=== PATIENT | male | born 1940 | race Caucasian/White ===

== ENCOUNTER 2018-11-04 15:39 | Observation (INO) ==
[2018-11-04 17:21] LABS: Hematocrit 35.1 % (42.0-52.0); Hemoglobin 11.4 gm/dL (13.5-18.0); Mean Cell Volume 91.9 fl (78-100); Mean Corpuscular Hemoglobin 29.8 pg (27-31); Mean Corpuscular Hgb Conc 32.5 g/dl (32-36); Mean Platelet Volume 11.2 fl (8-11.3); Neutrophil # 7.8 K/mm3 (1.3-6.0); Neutrophil % 85.8 % (42-75.0); Platelet Count 144 K/mm3 (150-450); Red Blood Count 3.82 M/mm3 (4.7-6.0); Red Cell Distribution Width 15.9 % (11.5-14.0); White Blood Count 9.1 K/mm3 (4.0-10.5)
[2018-11-04 17:29] LABS: Prothrombin Time (Patient) 29.3 Seconds (9.1-10.7)
[2018-11-04 17:30] LABS: INR 3.09 INR (0.92-1.08)
[2018-11-04 17:39] LABS: Urine Bilirubin Negative (NEGATIVE); Urine Ketone Negative (NEGATIVE); Urine Nitrite Negative (NEGATIVE); Urine Protein 100 mg/dL (NEGATIVE); Urine Specific Gravity 1.025 SP.GR. (1.005-1.030); Urine Urobilinogen Normal (NORMAL)
[2018-11-04 17:43] LABS: ALT 60 U/L (19-67); AST 115 U/L (0-48); Albumin * 3.6 gm/dl (3.4-5.0); Alkaline Phosphatase * 176 U/L (50-170); Anion Gap 12.9 mmol/L (6.8-13.8); BUN/Creatinine Ratio 31.5 (9.0-21.6); Blood Urea Nitrogen 45 mg/dL (6-23); Ca. Corrected For Albumin 9.6 mg/dL (8.4-10.2); Calcium * 9.6 mg/dL (7.9-10.9); Carbon Dioxide 28.1 mmol/L (24-32.6); Chloride 95 mmol/L (97-106); Digoxin 1.1 ng/mL (0.5-2.0); Glucose * 123 mg/dL (70-110); Sodium 131 mmol/L (132-142); TSH * 1.628 uIU/mL (0.358-3.74); Total Protein 7.1 gm/dL (6.2-8.2)
[2018-11-04 17:44] LABS: Salicylate Less than 2.8 mg/dL (2.8-20.0)
[2018-11-04 17:49] LABS: Urine Appearance Clear (CLEAR); Urine Blood 5 /ul (NEGATIVE); Urine Color Yellow
[2018-11-04 17:50] LABS: Urine Bacteria 1+; Urine Hyaline Cast 0-5 /LPF; Urine Mucus Few - 1+; Urine RBC 0-5 /hpf (0-5); Urine WBC 0-5 /hpf (0-5)
[2018-11-04 17:50] LABS: Cocaine Ur Negative (NEGATIVE); Urine Barbiturate Negative (NEGATIVE); Urine Benzodiazepines Negative (NEGATIVE); Urine Opiates Positive (NEGATIVE); Urine PCP Negative (NEGATIVE); Urine THC Negative (NEGATIVE)
--- NOTE | 2018-11-04 19:26 | ERNOTE ---
Neuro HPI ER Record Date of Service: 11/04/18 Presenting Symptoms: confusion, other - hallucinations Time Seen by Provider: 11/04/18 16:54 Source: patient, family Exam Limitations: no limitations Immunizations: IMMUNIZATION HX Immunizations Up to Date Yes Allergies/Adverse Reactions: Allergies Allergy/AdvReac Type Severity Reaction Status Date / Time JAMISON Inhibitors Allergy Severe Verified 11/04/18 16:14 Home Medications: HOME MEDICATIONS albuterol sulfate 1.25 mg/3 mL solution for nebulization 1.25 mg IH QID PRN #90 ml 04/01/18 [Last Taken Unknown] cholecalciferol (vitamin D3) 10,000 unit capsule 10,000 unit PO DAILY #30 cap 04/01/18 [Last Taken Unknown] digoxin 125 mcg tablet 0.125 mg PO DAILY #30 tab 04/01/18 [Last Taken Unknown] gabapentin 300 mg capsule 300 mg PO TID #90 cap 04/01/18 [Last Taken Unknown] isosorbide mononitrate ER 30 mg tablet,extended release 24 hr 15 mg PO DAILY #30 tab 04/01/18 [Last Taken Unknown] lorazepam 0.5 mg tablet 0.5 mg PO DAILY PRN #30 tab 04/01/18 [Last Taken Unknown] magnesium oxide 500 mg capsule 500 mg PO BID #60 cap 04/01/18 [Last Taken Unknown] nitroglycerin 0.4 mg sublingual tablet 0.4 mg SL Q5-15M PRN #30 tab 04/01/18 [Last Taken Unknown] simvastatin 20 mg tablet 20 mg PO QPM #30 tab 04/01/18 [Last Taken Unknown] tamsulosin 0.4 mg capsule 0.4 mg PO DAILY #30 cap 04/01/18 [Last Taken Unknown] warfarin 5 mg tablet 5 mg PO DAILY #30 tab 04/01/18 [Last Taken Unknown] furosemide 20 mg tablet 20 mg PO DAILY #30 tab 05/06/18 [Last Taken Unknown] potassium chloride ER 20 mEq tablet,extended release 20 meq PO DAILY #90 tab 05/06/18 [Last Taken Unknown] doxycycline hyclate 100 mg capsule 100 mg PO BID #14 cap 07/21/18 [Last Taken Unknown] prednisone 10 mg tablet 10 mg PO .COMPLEX #30 tab 07/21/18 [Last Taken Unknown] memantine 10 mg tablet 10 mg PO BID #60 tab 09/04/18 [Last Taken Unknown] fluoxetine 40 mg capsule 40 mg PO DAILY #30 cap 10/16/18 [Last Taken Unknown] allopurinol 300 mg tablet See Rx Instructions .ROUTE .COMPLEX #30 tablet 10/27/18 [Last Taken Unknown] eplerenone 25 mg tablet See Rx Instructions .ROUTE .COMPLEX #30 tablet 10/27/18 [Last Taken Unknown] nortriptyline 50 mg capsule See Rx Instructions .ROUTE .COMPLEX #30 capsule 10/27/18 [Last Taken Unknown] hydrocodone 5 mg-acetaminophen 325 mg tablet 1 tab PO Q6H PRN #120 tab 10/28/18 [Last Taken Unknown] - History of Present Illness Narrative: Patient presents to the ED for increased hallucinations and confusion. He has been having increased falls and family has been looking to get him placed in a intermediate. His relates that he has been having increased confusion and hallucinations. Talking to people who aren't there and seeing firetrucks that aren't there. He does not think this is happening. This has especially noted since Friday. He was to get a CT with contrast today but that could not be done because his creatinine was too high. No chest pain. no acute N/T/w. Onset: >3 hours - Character of Deficits New weakness: Present: other - nonr Altered sensation: Present: other - none Additional Deficits: Present: falling Baseline Gait: Present: walks w/o assistance Associated Symptoms: Reports: trouble thinking. Denies: fever/chills, chest pain, decreased responsiveness Prior Treament: Reports: recently seen. Denies: recently hospitalized Review of Systems - Review of Systems Constitutional: Absent: fever EYE: Absent: double vision ENT: Absent: sore throat Respiratory: Present: shortness of breath, other - chronic SOB Cardiology: Absent: chest pain Gastrointestinal/Abdominal: Absent: abdominal pain Genitourinary: Absent: dysuria Musculoskeletal: Present: other - no extremity injury from the falls Skin: Absent: rash Neurological: Absent: seizure All Other Systems: All systems neg except as marked Medical History (Last Reviewed 11/04/18 @ 19:17 by Enmanuel Shah MD) Movement disorder (Chronic) Atrial fibrillation (Chronic) Alzheimer's dementia (Chronic) CHF (congestive heart failure) (Chronic) Balance problem (Chronic) COPD (chronic obstructive pulmonary disease) (Chronic) Seizures (Chronic) PTSD (post-traumatic stress disorder) (Chronic) Skin cancer (Chronic) Brainstem stroke (Chronic) Heart murmur, systolic (Chronic) Anxiety Onset Date: Unknown Arthritis Onset Date: Unknown CHF (congestive heart failure) Onset Date: Unknown COPD (chronic obstructive pulmonary disease) Onset Date: Unknown Coronary artery disease Onset Date: Unknown Hypertension Onset Date: Unknown Irregular heartbeat Onset Date: Unknown MVP (mitral valve prolapse) Onset Date: Unknown Seizure disorder Onset Date: Unknown Sleep apnea Onset Date: Unknown Surgical History: Surgical History (Last Reviewed 11/04/18 @ 19:17 by Enmanuel Shah MD) Hx of appendectomy Onset Date: Unknown Hx of total knee replacement Onset Date: Unknown Bilateral Family History: Family History (Last Reviewed 11/04/18 @ 19:17 by Enmanuel Shah MD) Other No pertinent family history Social History: Preferred Language Israeli Do you have any amish or No cultural preference? Smoking Status Former smoker (Last Updated 11/03/18 @ 19:45 by Macho Mercado DO) No Social History Section defined Physical Exam - Physical Exam General Appearance: Present: alert, no apparent distress Head Exam: Present: normal inspection, no evidence of injury Eye Exam: Normal inspection: bilateral, PERRL: bilateral Ears, Nose, Throat: Present: normal ENT inspection Neck: Present: normal inspection Respiratory: Present: no respiratory distress, normal breath sounds, no accessory muscle use, lungs clear Cardiovascular/Chest: Present: normal peripheral pulses, irregularly irregular Gastrointestinal/Abdominal: Present: normal bowel sounds, nontender, nondistended, soft Back Exam: Absent: CVA tenderness (R), CVA tenderness (L) Extremity Exam: Present: normal range of motion Neurological Exam: Present: alert, no motor/sensory deficits, other - No evidence of acute stroke. He knows Ana is the president, its 2019 and that we are coming into . Skin Exam: Present: normal color, warm/dry Progress - Results and Orders Patient's Lab Results:: I have reviewed the patient's lab results. - Vital Signs Patient's Vital Signs:: I have reviewed the patient's vital signs. Vital Signs: Vital Signs 11/04/18 16:11 11/04/18 16:20 11/04/18 18:00 Temperature 36.4 C Pulse Rate 82 70 83 Respiratory Rate 15 Blood Pressure 143/88 O2 Sat by Pulse Oximetry 96 92 L 94 11/04/18 18:15 11/04/18 18:16 11/04/18 18:55 Temperature Pulse Rate 83 66 68 Respiratory Rate 18 18 Blood Pressure 140/86 131/84 O2 Sat by Pulse Oximetry 94 93 93 - EKG EKG #1 EKG: atrial fibrillation EKG read: Interp. by me EKG Comments: A fib rate 69. RBBB. Non-specific ST/T wave changes, no clear evidence of STEMI - CT/Ultrasound CT/Ultrasound Narrative: I reviewed head CT report per radiology, also recent CXR report - Progress/Reassessment Chief Complaint: Altered Mental Status Progress Note-Subjective: 11/04/18 19:20 Patient has elevated troponin of uncertain significance. He will need r/o, trending. I spoke with Dr Amin who saw the patient in the ED and admitted the patient. Pt and family agreeable. Departure Clinical Impression: Elevated troponin, Hallucinations, Altered mental status, Elevated serum creatinine - Departure Disposition: Still a patient Condition: Stable Referrals: Macho Mercado DO [Primary Care Provider] -
--- NOTE | 2018-11-04 20:22 | HP ---
Chief Complaint - Chief Complaint Date of Service: 11/04/18 Time of Service: 18:45 Chief Complaint: Altered mental status and recurrent falls History of Present Illness: 78-year-old male with past medical history of Alzheimer's dementia, anxiety, atrial fibrillation, CHF, COPD, CAD, hypertension, PTSD, seizure disorder, sleep apnea presents with complaints of altered mental status and recurrent falls. He is accompanied by his . She states that his symptoms began approximately 4 days ago where he was having visual hallucinations. He was seeing things such as a fire truck outside when there was no cars outside. He has also been having recurrent falls, approximately 3x/day. He had seen his primary care physician yesterday and was supposed to get a CT head today which she was not able to get due to abnormal renal function. In the ED CT head with no contrast showed no acute abnormality. states that his primary care physician, had discontinued all his medications except the warfarin and digoxin to see if this was contributing to his symptoms. Medical History (Last Reviewed 11/04/18 @ 19:17 by Enmanuel Shah MD) Movement disorder (Chronic) Atrial fibrillation (Chronic) Alzheimer's dementia (Chronic) CHF (congestive heart failure) (Chronic) Balance problem (Chronic) COPD (chronic obstructive pulmonary disease) (Chronic) Seizures (Chronic) PTSD (post-traumatic stress disorder) (Chronic) Skin cancer (Chronic) Brainstem stroke (Chronic) Heart murmur, systolic (Chronic) Anxiety Onset Date: Unknown Arthritis Onset Date: Unknown CHF (congestive heart failure) Onset Date: Unknown COPD (chronic obstructive pulmonary disease) Onset Date: Unknown Coronary artery disease Onset Date: Unknown Hypertension Onset Date: Unknown Irregular heartbeat Onset Date: Unknown MVP (mitral valve prolapse) Onset Date: Unknown Seizure disorder Onset Date: Unknown Sleep apnea Onset Date: Unknown Surgical History: Surgical History (Last Reviewed 11/04/18 @ 19:17 by Enmanuel Shah MD) Hx of appendectomy Onset Date: Unknown Hx of total knee replacement Onset Date: Unknown Bilateral Family History: Family History (Last Reviewed 11/04/18 @ 19:17 by Enmanuel Shah MD) Other No pertinent family history Social History: Preferred Language Sudanese Do you have any rastafari or No cultural preference? Smoking Status Former smoker (Last Updated 11/03/18 @ 19:45 by Macho Mercado DO) No Social History Section defined Review Of Systems (GEN) - Review of Systems Generalized/Overall Review: Absent: Fever Cardiac: Absent: Chest Pain Abdominal: Absent: Abdominal Pain Misc: All systems neg except as marked Immunizations: IMMUNIZATION HX Immunizations Up to Date Yes Allergies/Adverse Reactions: Allergies Allergy/AdvReac Type Severity Reaction Status Date / Time JAMISON Inhibitors Allergy Severe Verified 11/04/18 16:14 Home Medications: HOME MEDICATIONS albuterol sulfate 1.25 mg/3 mL solution for nebulization 1.25 mg IH QID PRN #90 ml 04/01/18 [Last Taken Unknown] cholecalciferol (vitamin D3) 10,000 unit capsule 10,000 unit PO DAILY #30 cap 04/01/18 [Last Taken Unknown] digoxin 125 mcg tablet 0.125 mg PO DAILY #30 tab 04/01/18 [Last Taken Unknown] gabapentin 300 mg capsule 300 mg PO TID #90 cap 04/01/18 [Last Taken Unknown] isosorbide mononitrate ER 30 mg tablet,extended release 24 hr 15 mg PO DAILY #30 tab 04/01/18 [Last Taken Unknown] lorazepam 0.5 mg tablet 0.5 mg PO DAILY PRN #30 tab 04/01/18 [Last Taken Unknown] magnesium oxide 500 mg capsule 500 mg PO BID #60 cap 04/01/18 [Last Taken Unknown] nitroglycerin 0.4 mg sublingual tablet 0.4 mg SL Q5-15M PRN #30 tab 04/01/18 [Last Taken Unknown] simvastatin 20 mg tablet 20 mg PO QPM #30 tab 04/01/18 [Last Taken Unknown] tamsulosin 0.4 mg capsule 0.4 mg PO DAILY #30 cap 04/01/18 [Last Taken Unknown] warfarin 5 mg tablet 5 mg PO DAILY #30 tab 04/01/18 [Last Taken Unknown] furosemide 20 mg tablet 20 mg PO DAILY #30 tab 05/06/18 [Last Taken Unknown] potassium chloride ER 20 mEq tablet,extended release 20 meq PO DAILY #90 tab 05/06/18 [Last Taken Unknown] doxycycline hyclate 100 mg capsule 100 mg PO BID #14 cap 07/21/18 [Last Taken Unknown] prednisone 10 mg tablet 10 mg PO .COMPLEX #30 tab 07/21/18 [Last Taken Unknown] memantine 10 mg tablet 10 mg PO BID #60 tab 09/04/18 [Last Taken Unknown] fluoxetine 40 mg capsule 40 mg PO DAILY #30 cap 10/16/18 [Last Taken Unknown] allopurinol 300 mg tablet See Rx Instructions .ROUTE .COMPLEX #30 tablet 10/27/18 [Last Taken Unknown] eplerenone 25 mg tablet See Rx Instructions .ROUTE .COMPLEX #30 tablet 10/27/18 [Last Taken Unknown] nortriptyline 50 mg capsule See Rx Instructions .ROUTE .COMPLEX #30 capsule 10/27/18 [Last Taken Unknown] hydrocodone 5 mg-acetaminophen 325 mg tablet 1 tab PO Q6H PRN #120 tab 10/28/18 [Last Taken Unknown] Exam - Exam Vital Signs: Vital Signs - Last Taken Temp 36.4 C 11/04/18 16:11 Pulse 68 11/04/18 20:01 Resp 20 11/04/18 20:01 BP 131/76 11/04/18 20:01 Pulse Ox 93 11/04/18 20:01 Constitutional: Present: Alert, Oriented x3, Cooperative, Well developed, Well nourished, No distress, Elderly, Looks Older than stated age ENT Exam: Present: hearing grossly normal Eye Exam: bilateral eye: normal inspection, PERRL Neck: Present: non-tender, supple. Absent: lymphadenopathy (R), lymphadenopathy (L) Back Exam: Present: normal inspection Respiratory: Present: lungs clear, normal breath sounds, No wheezing. Absent: crackles, rhonchi Cardiovascular/Chest: Present: normal peripheral pulses, regular rate, rhythm, no murmur Peripheral Pulses: dorsalis-pedis (R): 1+, dorsalis-pedis (L): 1+ Abdomen: Present: Normal bowel sounds, soft, nontender Extremity: Present: non-tender, pedal edema - Trace Skin Exam: Present: normal color, warm/dry Appearance: Present: appropriate appearance, impaired insight Eye contact: Present: cooperative, good eye contact Thoughts: Present: normal mood /affect Diagnostic Studies: Abnormal Lab Results 11/04/18 11/04/18 11/04/18 Range/Units 17:14 17:14 17:14 RBC 3.82 L (4.7-6.0) M/mm3 Hgb 11.4 L (13.5-18.0) gm/dL Hct 35.1 L (42.0-52.0) % RDW 15.9 H (11.5-14.0) % Plt Count 144 L (150-450) K/mm3 Neutrophils % 85.8 H (42-75.0) % Lymphocytes % 6.4 L (20-51) % Neutrophils # 7.8 H (1.3-6.0) K/mm3 Lymphocytes # 0.58 L (1.5-3.5) k/mm3 PT 29.3 H (9.1-10.7) Seconds INR (Anticoag Therapy) 3.09 H (0.92-1.08) INR Sodium 131 L (132-142) mmol/L Potassium 5.0 H (3.4-4.6) mmol/L Chloride 95 L (97-106) mmol/L BUN 45 H (6-23) mg/dL Creatinine 1.43 H (0.4-1.4) mg/dL Est GFR (Non-Af Amer) 51 L (60-130) mL/min BUN/Creatinine Ratio 31.5 H (9.0-21.6) Random Glucose 123 H (70-110) mg/dL AST 115 H (0-48) U/L Alkaline Phosphatase 176 H (50-170) U/L Troponin I 0.120 H* (0.00-0.10) ng/mL Urine Protein (NEGATIVE) mg/dL Urine Blood (NEGATIVE) /ul Prot Sulfosalicylic Acd (0) mg/dL Urine Bacteria (NONE) Hyaline Casts (NONE) /LPF Urine Mucus (NONE) Salicylates Less than 2.8 L (2.8-20.0) mg/dL Urine Opiates Screen (NEGATIVE) Acetaminophen Less than 0.2 L (10.0-30.0) mcg/mL 11/04/18 11/04/18 Range/Units 17:24 17:26 RBC (4.7-6.0) M/mm3 Hgb (13.5-18.0) gm/dL Hct (42.0-52.0) % RDW (11.5-14.0) % Plt Count (150-450) K/mm3 Neutrophils % (42-75.0) % Lymphocytes % (20-51) % Neutrophils # (1.3-6.0) K/mm3 Lymphocytes # (1.5-3.5) k/mm3 PT (9.1-10.7) Seconds INR (Anticoag Therapy) (0.92-1.08) INR Sodium (132-142) mmol/L Potassium (3.4-4.6) mmol/L Chloride (97-106) mmol/L BUN (6-23) mg/dL Creatinine (0.4-1.4) mg/dL Est GFR (Non-Af Amer) (60-130) mL/min BUN/Creatinine Ratio (9.0-21.6) Random Glucose (70-110) mg/dL AST (0-48) U/L Alkaline Phosphatase (50-170) U/L Troponin I (0.00-0.10) ng/mL Urine Protein 100 H (NEGATIVE) mg/dL Urine Blood 5 H (NEGATIVE) /ul Prot Sulfosalicylic Acd 2+ H (0) mg/dL Urine Bacteria 1+ H (NONE) Hyaline Casts 0-5 H (NONE) /LPF Urine Mucus Few - 1+ H (NONE) Salicylates (2.8-20.0) mg/dL Urine Opiates Screen Positive H (NEGATIVE) Acetaminophen (10.0-30.0) mcg/mL Laboratory Results WBC 9.1 K/mm3 (4.0-10.5) 11/04/18 17:14 RBC 3.82 M/mm3 (4.7-6.0) L 11/04/18 17:14 Hgb 11.4 gm/dL (13.5-18.0) L 11/04/18 17:14 Hct 35.1 % (42.0-52.0) L 11/04/18 17:14 MCV 91.9 fl (78-100) 11/04/18 17:14 MCH 29.8 pg (27-31) 11/04/18 17:14 MCHC 32.5 g/dl (32-36) 11/04/18 17:14 RDW 15.9 % (11.5-14.0) H 11/04/18 17:14 Plt Count 144 K/mm3 (150-450) L 11/04/18 17:14 MPV 11.2 fl (8-11.3) 11/04/18 17:14 Immature Gran % (Auto) 0.30 % (0.001-0.429) 11/04/18 17:14 Immature Gran # (Auto) 0.03 K/mm3 (0.000-0.0310) 11/04/18 17:14 Neutrophils % 85.8 % (42-75.0) H 11/04/18 17:14 Lymphocytes % 6.4 % (20-51) L 11/04/18 17:14 Monocytes % 7.0 % (0.0-9) 11/04/18 17:14 Eosinophils % 0.3 % (0.0-3.0) 11/04/18 17:14 Basophils % 0.2 % (0.0-1.0) 11/04/18 17:14 Nucleated RBC % 0.0 k/mm3 (0-1) 11/04/18 17:14 Neutrophils # 7.8 K/mm3 (1.3-6.0) H 11/04/18 17:14 Lymphocytes # 0.58 k/mm3 (1.5-3.5) L 11/04/18 17:14 Monocytes # 0.6 k/mm3 (0.0-1.0) 11/04/18 17:14 Eosinophils # 0.0 k/mm3 (0.0-0.7) 11/04/18 17:14 Absolute Basophils 0.0 k/mm3 (0.0-0.1) 11/04/18 17:14 PT 29.3 Seconds (9.1-10.7) H 11/04/18 17:14 INR (Anticoag Therapy) 3.09 INR (0.92-1.08) H 11/04/18 17:14 Sodium 131 mmol/L (132-142) L 11/04/18 17:14 Plasma Sodium 131 mmol/L (130-142) 11/04/18 17:14 Potassium 5.0 mmol/L (3.4-4.6) H 11/04/18 17:14 Chloride 95 mmol/L (97-106) L 11/04/18 17:14 Carbon Dioxide 28.1 mmol/L (24-32.6) 11/04/18 17:14 Anion Gap 12.9 mmol/L (6.8-13.8) 11/04/18 17:14 BUN 45 mg/dL (6-23) H 11/04/18 17:14 Creatinine 1.43 mg/dL (0.4-1.4) H 11/04/18 17:14 Est GFR (Non-Af Amer) 51 mL/min (60-130) L 11/04/18 17:14 BUN/Creatinine Ratio 31.5 (9.0-21.6) H 11/04/18 17:14 Random Glucose 123 mg/dL (70-110) H 11/04/18 17:14 Calcium 9.6 mg/dL (7.9-10.9) 11/04/18 17:14 Calcium Adj for Albumin 9.6 mg/dL (8.4-10.2) 11/04/18 17:14 Total Bilirubin 1.0 mg/dL (0.0-1.1) 11/04/18 17:14 AST 115 U/L (0-48) H 11/04/18 17:14 ALT 60 U/L (19-67) 11/04/18 17:14 Alkaline Phosphatase 176 U/L (50-170) H 11/04/18 17:14 Ammonia 19.0 mcmol/L (11-35) 11/04/18 17:14 Troponin I 0.120 ng/mL (0.00-0.10) H* 11/04/18 17:14 Total Protein 7.1 gm/dL (6.2-8.2) 11/04/18 17:14 Albumin 3.6 gm/dl (3.4-5.0) 11/04/18 17:14 TSH 1.628 uIU/mL (0.358-3.74) 11/04/18 17:14 Urine Color Yellow 11/04/18 17:24 Urine Appearance Clear (CLEAR) 11/04/18 17:24 Urine pH 6.0 pH (5.0-7.0) 11/04/18 17:24 Ur Specific [place] 1.025 SP.GR. (1.005-1.030) 11/04/18 17:24 Urine Protein 100 mg/dL (NEGATIVE) H 11/04/18 17:24 Urine Glucose (UA) Negative mg/dL (NEGATIVE) 11/04/18 17:24 Urine Ketones Negative mg/dL (NEGATIVE) 11/04/18 17:24 Urine Blood 5 /ul (NEGATIVE) H 11/04/18 17:24 Urine Nitrate Negative (NEGATIVE) 11/04/18 17:24 Urine Bilirubin Negative mg/dl (NEGATIVE) 11/04/18 17:24 Prot Sulfosalicylic Acd 2+ mg/dL (0) H 11/04/18 17:24 Urine Urobilinogen Normal EU/dl (NORMAL) 11/04/18 17:24 Ur Leukocyte Esterase Negative /ul (NEGATIVE) 11/04/18 17:24 Urine RBC 0-5 /hpf (0-5) 11/04/18 17:24 Urine WBC 0-5 /hpf (0-5) 11/04/18 17:24 Ur Epithelial Cells 0-5 /hpf (0-5) 11/04/18 17:24 Urine Bacteria 1+ (NONE) H 11/04/18 17:24 Hyaline Casts 0-5 /LPF (NONE) H 11/04/18 17:24 Urine Mucus Few - 1+ (NONE) H 11/04/18 17:24 Urine Culture Comments No culture indicated 11/04/18 17:24 Digoxin 1.1 ng/mL (0.5-2.0) 11/04/18 17:14 Salicylates Less than 2.8 mg/dL (2.8-20.0) L 11/04/18 17:14 Urine Opiates Screen Positive (NEGATIVE) H 11/04/18 17:26 Acetaminophen Less than 0.2 mcg/mL (10.0-30.0) L 11/04/18 17:14 Barbiturate Screen Negative (NEGATIVE) 11/04/18 17:26 Ur Phencyclidine Scrn Negative (NEGATIVE) 11/04/18 17:26 Urine Amphetamine Negative (NEGATIVE) 11/04/18 17:26 U Benzodiazepines Scrn Negative (NEGATIVE) 11/04/18 17:26 Urine Cocaine Screen Negative (NEGATIVE) 11/04/18 17:26 Urine Marijuana (THC) Negative (NEGATIVE) 11/04/18 17:26 Ethyl Alcohol 3.0 mg/dL (0.0-10.0) 11/04/18 17:14 Assessment/Plan - Narrative Narrative: 78-year-old male with past medical history of Alzheimer's dementia, anxiety, atrial fibrillation, CHF, COPD, CAD, hypertension, PTSD, seizure disorder, sleep apnea presents with complaints of visual hallucinations and recurrent falls. would like to place him in a fci because she believes he is not safe at home. She works 2 jobs and has nobody to check in on him. - Assessment/Plan (1) Hallucinations Assessment: Likely secondary to delirium in the setting of dementia. We will consider psych consult tomorrow Problem: Acute (2) Altered mental status Assessment: Likely secondary to delirium in the setting of dementia. Consider psych consult in the morning. No signs of infectious etiology. Problem: Acute (3) Atrial fibrillation Problem: Chronic Qualifiers: Atrial fibrillation type: chronic Qualified Code(s): I48.2 - Chronic atrial fibrillation (4) CHF (congestive heart failure) Problem: Chronic Qualifiers: Heart failure type: right-sided Heart failure chronicity: chronic Qualified Code(s): I50.812 - Chronic right heart failure (5) COPD (chronic obstructive pulmonary disease) Problem: Chronic Qualifiers: COPD type: emphysema Emphysema type: panlobular Qualified Code(s): J43.1 - Panlobular emphysema (6) Elevated troponin Assessment: Etiology unclear will trend. He denies chest pain. Possibly secondary to CKD. Problem: Acute
[2018-11-04] MEDS ORDERED: ALBUTEROL SULFATE 2.5 MG/0.5 ML VIAL.NEB IH PRN (20:52)
[2018-11-04] MEDS: ALBUTEROL SULFATE 2.5 MG/0.5 ML VIAL.NEB IH PRN (21:17)
[2018-11-04] MEDS ORDERED: ALBUTEROL SULFATE 2.5 MG/0.5 ML VIAL.NEB IH ONE (23:33)
[2018-11-05] MEDS: ALBUTEROL SULFATE 2.5 MG/0.5 ML VIAL.NEB IH PRN ×2 (03:30→17:25)
[2018-11-05 08:28] LABS: Prothrombin Time (Patient) 29.4 Seconds (9.1-10.7)
[2018-11-05 08:43] LABS: INR 3.1 INR (0.92-1.08)
[2018-11-05] MEDS: DIGOXIN 0.125 MG TABLET PO SCH (08:57)
[2018-11-05] MEDS ORDERED: LORazepam 0.5 MG TABLET PO PRN (15:56)
--- NOTE | 2018-11-05 15:56 | CONS ---
[facility] - General Date of Service: 11/05/18 Source: patient, family, RN/MD, RN notes reviewed, old records Exam Limitations: clinical condition - History of Present Illness Timing/Duration: getting worse Severity: moderate Allergies/Adverse Reactions: Allergies JAMISON Inhibitors Allergy (Severe, Verified 11/04/18 20:33) Home Medications: Home Medications Medication Instructions Recorded Last Taken albuterol sulfate 1.25 mg/3 mL 1.25 mg IH QID PRN #90 ml 04/01/18 Unknown solution for nebulization cholecalciferol (vitamin D3) 10,000 unit PO DAILY #30 cap 04/01/18 Unknown 10,000 unit capsule digoxin 125 mcg tablet 0.125 mg PO DAILY #30 tab 04/01/18 Unknown gabapentin 300 mg capsule 300 mg PO TID #90 cap 04/01/18 Unknown isosorbide mononitrate ER 30 mg 15 mg PO DAILY #30 tab 04/01/18 Unknown tablet,extended release 24 hr lorazepam 0.5 mg tablet 0.5 mg PO DAILY PRN #30 tab 04/01/18 Unknown magnesium oxide 500 mg capsule 500 mg PO BID #60 cap 04/01/18 Unknown nitroglycerin 0.4 mg sublingual 0.4 mg SL Q5-15M PRN #30 tab 04/01/18 Unknown tablet simvastatin 20 mg tablet 20 mg PO QPM #30 tab 04/01/18 Unknown tamsulosin 0.4 mg capsule 0.4 mg PO DAILY #30 cap 04/01/18 Unknown warfarin 5 mg tablet 5 mg PO DAILY #30 tab 04/01/18 Unknown furosemide 20 mg tablet 20 mg PO DAILY #30 tab 05/06/18 Unknown potassium chloride ER 20 mEq 20 meq PO DAILY #90 tab 05/06/18 Unknown tablet,extended release doxycycline hyclate 100 mg capsule 100 mg PO BID #14 cap 07/21/18 Unknown prednisone 10 mg tablet 10 mg PO .COMPLEX #30 tab 07/21/18 Unknown memantine 10 mg tablet 10 mg PO BID #60 tab 09/04/18 Unknown fluoxetine 40 mg capsule 40 mg PO DAILY #30 cap 10/16/18 Unknown allopurinol 300 mg tablet See Rx Instructions .ROUTE 10/27/18 Unknown .COMPLEX #30 tablet eplerenone 25 mg tablet See Rx Instructions .ROUTE 10/27/18 Unknown .COMPLEX #30 tablet nortriptyline 50 mg capsule See Rx Instructions .ROUTE 10/27/18 Unknown .COMPLEX #30 capsule hydrocodone 5 mg-acetaminophen 325 1 tab PO Q6H PRN #120 tab 10/28/18 Unknown mg tablet Medications - Medications Current Medications: Current Medications Albuterol Sulfate (Albuterol Sulfate 2.5 Mg/0.5ml) 2.5 mg IH Q6H PRN PRN Reason: Wheezing Stop: 12/04/18 21:01 Last Admin: 11/05/18 03:30 Dose: 2.5 mg Documented by: Digoxin (Lanoxin) 0.125 mg PO DAILY CHUCKY Stop: 12/05/18 09:01 Last Admin: 11/05/18 08:57 Dose: 0.125 mg Documented by: Review of Systems - Review of Systems Neurological: Present: Anxiety, Pre-existing Deficit Physical Examination - Exam Narrative: Visit lasts approx. 20 minutes. Patient seen with . states that several weeks ago, condition began to deteriorate. Has been falling frequently and experiencing auditory and visual hallucinations like thinking people are in the house or there is a firetruck at the neighbor's. states that they were managing at home fine until the past 1-2 weeks. She can't leave him alone due to the mild confusion and falls. states that PCP stopped all of medications except for Coumadin and Digoxin on Friday. Stopping these medications has not improved or worsened mental status. states that she suspects a UTI due to rapid change in his mental status. He has not been drinking much and has been voiding more frequently the past 2 days. Patient states that he has only one kidney. Discussed possible causes of change in mental status. I feels since the decline occurred fairly quickly, that the hallucinations and confusion are due to a medical condition. I recommend that labs be reviewed by attending provider and repeat UA. I feel that he would benefit from Lorazepam 0.5 mg BID PRN for anxiety. I do not recommend restarting Nortriptyline due to anticolinergic effects and increased risk for hypotension, dizziness, and falls due to side effects. Vital Signs: Vital Signs - Last Taken Temp 12 C L 11/05/18 13:28 Pulse 86 11/05/18 13:28 Resp 16 11/05/18 13:28 BP 116/72 11/05/18 13:28 Pulse Ox 93 11/05/18 13:28 O2 Oxygen Delivery Method Room Air Constitutional: Present: Alert, Cooperative, Mild distress - Legs are restless, kicking feet around under covers. Appearance: Present: impaired insight, impaired recent memory, other - Able to recall some recent events. Is able to recall past events.. Absent: appropriate insight, no memory impairment, impaired remote memory Eye contact: Present: cooperative, good eye contact Thoughts: Present: auditory hallucinations, visual hallucinations, other - Denies any hallucinations at the present time but has had them intermittently. - Results and Findings: Lab/Microbiology results last 24 hrs: Abnormal/Pending Laboratory Last 24 HRS 11/05/18 11/04/18 11/04/18 06:10 17:26 17:24 RBC Hgb Hct RDW Plt Count Neutrophils % Lymphocytes % Neutrophils # Lymphocytes # PT 29.4 H INR (Anticoag Therapy) 3.10 H Sodium Potassium Chloride BUN Creatinine Est GFR (Non-Af Amer) BUN/Creatinine Ratio Random Glucose AST Alkaline Phosphatase Troponin I Urine Protein 100 H Urine Blood 5 H Prot Sulfosalicylic Acd 2+ H Urine Bacteria 1+ H Hyaline Casts 0-5 H Urine Mucus Few - 1+ H Salicylates Urine Opiates Screen Positive H Acetaminophen 11/04/18 11/04/18 11/04/18 17:14 17:14 17:14 RBC 3.82 L Hgb 11.4 L Hct 35.1 L RDW 15.9 H Plt Count 144 L Neutrophils % 85.8 H Lymphocytes % 6.4 L Neutrophils # 7.8 H Lymphocytes # 0.58 L PT 29.3 H INR (Anticoag Therapy) 3.09 H Sodium 131 L Potassium 5.0 H Chloride 95 L BUN 45 H Creatinine 1.43 H Est GFR (Non-Af Amer) 51 L BUN/Creatinine Ratio 31.5 H Random Glucose 123 H AST 115 H Alkaline Phosphatase 176 H Troponin I 0.120 H* Urine Protein Urine Blood Prot Sulfosalicylic Acd Urine Bacteria Hyaline Casts Urine Mucus Salicylates Less than 2.8 L Urine Opiates Screen Acetaminophen Less than 0.2 L - Assessments/Findings (1) Hallucinations Problem: Acute
[2018-11-05] MEDS ORDERED: WARFARIN SODIUM 5 MG TABLET PO SCH (17:00)
--- NOTE | 2018-11-05 20:01 | PN ---
Subjective - Date and Time Seen Date: 11/05/18 Time: 11:30 Subjective Narrative: Denies any complaints. Objective - Review of Systems Generalized/Overall Review: Denies: Fever Respiratory: Denies: Shortness of Breath Cardiac: Denies: Chest Pain Abdominal: Denies: Abdominal Pain Misc: All systems neg except as marked - Vitals Vitals: Last Vital Signs Temp 36.9 C 11/05/18 19:34 Pulse 103 H 11/05/18 19:34 Resp 18 11/05/18 19:34 BP 139/81 11/05/18 19:34 Pulse Ox 98 11/05/18 19:34 - Abnormal Lab Findings Abnormal Lab Findings: Abnormal Lab Results 11/05/18 Range/Units 06:10 PT 29.4 H (9.1-10.7) Seconds INR (Anticoag Therapy) 3.10 H (0.92-1.08) INR - Exam Constitutional: Present: Alert, Oriented x3, Cooperative, Well developed, Well nourished, No distress, Elderly ENT Exam: Present: hearing grossly normal Neck: Absent: lymphadenopathy (R), lymphadenopathy (L) Respiratory: Present: lungs clear, normal breath sounds, no respiratory distress Cardiovascular/Chest: Present: normal peripheral pulses, regular rate, rhythm, no murmur Abdomen: Present: Normal bowel sounds, soft, nontender Extremity: Present: lower extremity edema Skin Exam: Present: normal color, warm/dry Eye contact: Present: cooperative Assessment/Plan Plan Narrative: 78-year-old male with past medical history of Alzheimer's dementia, anxiety, atrial fibrillation, CHF, COPD, CAD, hypertension, PTSD, seizure disorder, sleep apnea presents with complaints of altered mental status with visual hallucinations and recurrent falls. He had seen his primary care physician yesterday and was supposed to get a CT head today which she was not able to get due to abnormal renal function. In the ED CT head with no contrast showed no acute abnormality. states that his primary care physician, had discontinued all his medications except the warfarin and digoxin to see if this was contributing to his symptoms. Deemed that she does not believe there is any psychiatric cause of his hallucinations. She believes it is medical. UA was negative medically stable otherwise. would like to send him to a residential on placement. - Problems/Diagnosis (1) Hallucinations Problem: Acute (2) Altered mental status Problem: Acute (3) Atrial fibrillation Problem: Chronic Qualifiers: Atrial fibrillation type: chronic Qualified Code(s): I48.2 - Chronic atrial fibrillation (4) CHF (congestive heart failure) Problem: Chronic Qualifiers: Heart failure type: right-sided Heart failure chronicity: chronic Qualified Code(s): I50.812 - Chronic right heart failure (5) COPD (chronic obstructive pulmonary disease) Problem: Chronic Qualifiers: COPD type: emphysema Emphysema type: panlobular Qualified Code(s): J43.1 - Panlobular emphysema (6) Elevated troponin Problem: Acute Narrative: Downtrending. He denies chest pain.
[2018-11-06 05:42] LABS: Prothrombin Time (Patient) 26.9 Seconds (9.1-10.7)
[2018-11-06 05:43] LABS: INR 2.83 INR (0.92-1.08)
[2018-11-06 05:46] LABS: Hemoglobin 11.2 gm/dL (13.5-18.0); Mean Cell Volume 91.6 fl (78-100); Mean Corpuscular Hemoglobin 29.3 pg (27-31); Mean Platelet Volume 10.9 fl (8-11.3); Neutrophil # 6.3 K/mm3 (1.3-6.0); Neutrophil % 79.8 % (42-75.0); Platelet Count 161 K/mm3 (150-450); Red Blood Count 3.82 M/mm3 (4.7-6.0); Red Cell Distribution Width 15.8 % (11.5-14.0); White Blood Count 7.9 K/mm3 (4.0-10.5)
[2018-11-06 05:52] LABS: Albumin * 3.3 gm/dl (3.4-5.0); Anion Gap 11.5 mmol/L (6.8-13.8); BUN/Creatinine Ratio 22.5 (9.0-21.6); Bilirubin, Total 1.1 mg/dL (0.0-1.1); Calcium * 8.8 mg/dL (7.9-10.9); Carbon Dioxide 28.5 mmol/L (24-32.6); Total Protein 6.5 gm/dL (6.2-8.2)
[2018-11-06] MEDS: ALBUTEROL SULFATE 2.5 MG/0.5 ML VIAL.NEB IH PRN (06:55)
[2018-11-06] MEDS: DIGOXIN 0.125 MG TABLET PO SCH (08:38)
[2018-11-06] MEDS ORDERED: ISOSORBIDE MONONITRATE 30 MG TAB.SR.24H PO SCH (09:00)
[2018-11-06] MEDS ORDERED: TAMSULOSIN HCL 0.4 MG CAP.SR.24H PO SCH ×2 (09:00→18:00)
--- NOTE | 2018-11-06 11:30 | DS ---
(1) Hallucinations Diagnosis(s): He continues to have visual hallucinations here and is talking to people who were not there. I believe this is all related to his dementia not any acute medical issue at this time. Namenda controlled on the psychiatric nurse practitioner recommends Ativan 0.5 mg as needed for anxiety. Problem: Acute (2) Altered mental status Diagnosis(s): Likely chronic secondary to his history of dementia. No acute medical issues at this time. Problem: Chronic (3) Atrial fibrillation Problem: Chronic Qualifiers: Atrial fibrillation type: chronic Qualified Code(s): I48.2 - Chronic atrial fibrillation (4) CHF (congestive heart failure) Problem: Chronic Qualifiers: Heart failure type: right-sided Heart failure chronicity: chronic Qualified Code(s): I50.812 - Chronic right heart failure (5) COPD (chronic obstructive pulmonary disease) Problem: Chronic Qualifiers: COPD type: emphysema Emphysema type: panlobular Qualified Code(s): J43.1 - Panlobular emphysema (6) Elevated troponin Problem: Resolved (7) Alzheimer's dementia Problem: Chronic Qualifiers: Alzheimer's disease onset: late-onset Dementia behavioral disturbance: with behavioral disturbance Qualified Code(s): G30.1 - Alzheimer's disease with late onset; F02.81 - Dementia in other diseases classified elsewhere with behavioral disturbance Description of Stay: 78-year-old male with past medical history of Alzheimer's dementia, anxiety, atrial fibrillation, CHF, COPD, CAD, hypertension, PTSD, seizure disorder, sleep apnea presents with complaints of altered mental status with visual hallucinations and recurrent falls. He had seen his primary care physician yesterday and was supposed to get a CT head today which she was not able to get due to abnormal renal function. In the ED CT head with no contrast showed no acute abnormality. states that his primary care physician, had discontinued all his medications except the warfarin and digoxin to see if this was contributing to his symptoms. Deemed that she does not believe there is any psychiatric cause of his hallucinations. She believes it is medical, however, UA was negative medically stable otherwise. would like to send him to a jail if possible. The confusion appears to be chronic and likely secondary to his dementia. Procedures Performed: none Results and Findings: Lab Pending Results 11/04/18 17:14: PT 29.3 H, INR (Anticoag Therapy) 3.09 H 03/20/19 17:14: Sodium 131 L, Plasma Sodium 131, Potassium 5.0 H, Chloride 95 L, Carbon Dioxide 28.1, Anion Gap 12.9, BUN 45 H, Creatinine 1.43 H, Est GFR (Non-Af Amer) 51 L, BUN/Creatinine Ratio 31.5 H, Random Glucose 123 H, Calcium 9.6, Calcium Adj for Albumin 9.6, Total Bilirubin 1.0, AST 115 H, ALT 60, Alkaline Phosphatase 176 H, Troponin I 0.120 H*, Total Protein 7.1, Albumin 3.6, TSH 1.628, Digoxin 1.1, Salicylates Less than 2.8 L, Acetaminophen Less than 0.2 L, Ethyl Alcohol 3.0 11/04/18 17:14: Ammonia 19.0 11/04/18 17:14: WBC 9.1, RBC 3.82 L, Hgb 11.4 L, Hct 35.1 L, MCV 91.9, MCH 29.8, MCHC 32.5, RDW 15.9 H, Plt Count 144 L, MPV 11.2, Immature Gran % (Auto) 0.30, Immature Gran # (Auto) 0.03, Neutrophils % 85.8 H, Lymphocytes % 6.4 L, Monocytes % 7.0, Eosinophils % 0.3, Basophils % 0.2, Nucleated RBC % 0.0, Neutrophils # 7.8 H, Lymphocytes # 0.58 L, Monocytes # 0.6, Eosinophils # 0.0, Absolute Basophils 0.0 11/04/18 17:24: Urine Color Yellow, Urine Appearance Clear, Urine pH 6.0, Ur Specific Mercedes 1.025, Urine Protein 100 H, Urine Glucose (UA) Negative, Urine Ketones Negative, Urine Blood 5 H, Urine Nitrate Negative, Urine Bilirubin Negative, Prot Sulfosalicylic Acd 2+ H, Urine Urobilinogen Normal, Ur Leukocyte Esterase Negative, Urine RBC 0-5, Urine WBC 0-5, Ur Epithelial Cells 0-5, Urine Bacteria 1+ H, Hyaline Casts 0-5 H, Urine Mucus Few - 1+ H, Urine Culture Comments No culture indicated 11/04/18 17:26: Urine Opiates Screen Positive H, Barbiturate Screen Negative, Ur Phencyclidine Scrn Negative, Urine Amphetamine Negative, U Benzodiazepines Scrn Negative, Urine Cocaine Screen Negative, Urine Marijuana (THC) Negative 11/05/18 06:10: PT 29.4 H, INR (Anticoag Therapy) 3.10 H 11/05/18 06:50: Troponin I 0.096 11/06/18 05:05: WBC 7.9, RBC 3.82 L, Hgb 11.2 L, Hct 35.0 L, MCV 91.6, MCH 29.3, MCHC 32.0, RDW 15.8 H, Plt Count 161, MPV 10.9, Immature Gran % (Auto) 0.40, Immature Gran # (Auto) 0.03, Neutrophils % 79.8 H, Lymphocytes % 8.7 L, Monocytes % 9.4 H, Eosinophils % 1.4, Basophils % 0.3, Nucleated RBC % 0.0, Neutrophils # 6.3 H, Lymphocytes # 0.68 L, Monocytes # 0.7, Eosinophils # 0.1, Absolute Basophils 0.0 11/06/18 05:05: Sodium 133, Plasma Sodium 133, Potassium 4.0, Chloride 97, Carbon Dioxide 28.5, Anion Gap 11.5, BUN 25 H, Creatinine 1.11, Est GFR (Non-Af Amer) 68 D, BUN/Creatinine Ratio 22.5 H, Random Glucose 97, Calcium 8.8, Calcium Adj for Albumin 9.0, Total Bilirubin 1.1, AST 90 H, ALT 64, Alkaline Phosphatase 182 H, Total Protein 6.5, Albumin 3.3 L 11/06/18 05:05: PT 26.9 H, INR (Anticoag Therapy) 2.83 H Discharge Location: Home Disposition: Home self-care Condition: Stable Discharge Activity: Activity as tolerated Discharge Diet: General/regular food Referrals: Macho Mercado DO [Primary Care Provider] - Problem Oriented Discharge Instructions to Patient/Family: Confusion Additional Patient Instructions (free text): -Please make TCM appointment unless jail discharge. Thank you! Pratibha @ [phone]. Complete Home Medications List: Complete Home Medication List: albuterol sulfate 1.25 mg/3 mL solution for nebulization 1.25 mg IH QID PRN #90 ml 04/01/18 digoxin 125 mcg tablet 0.125 mg PO DAILY #30 tab 04/01/18 lorazepam 0.5 mg tablet 0.5 mg PO DAILY PRN #30 tab 04/01/18 warfarin 5 mg tablet 5 mg PO DAILY #30 tab 04/01/18 potassium chloride ER 20 mEq tablet,extended release 20 meq PO DAILY #90 tab 05/06/18
[2018-11-06] MEDS ORDERED: ACETAMINOPHEN 325 MG TABLET PO PRN (12:51)
[2018-11-06 16:38] VITALS: BP 121/75
== END 2018-11-06 16:48 | disposition home or self-care (01) ==
LOC: ER 15:39 → MS 15:39
PROVIDERS: ADMIT Internal Medicine; ATTEND Family Medicine
CPT/HCPCS: 36415; 70450; 80053; 80162; 80307; 80329; 81001; 82140; 84443; 84484; 85025; 85610; 93005; 94640; 99285; G0378; G0480